=== PATIENT | female | born 1975 | race Caucasian/White ===

== ENCOUNTER 2023-01-01 17:37 | Emergency (ER) | payer BC, OTHER ==
[2023-01-01] MEDS ORDERED: ACETAMINOPHEN 500 MG TABLET (FP) PO ONE (17:58)
[2023-01-01] MEDS ORDERED: METHOCARBAMOL 500 MG TABLET PO ONE (17:58)
[2023-01-01] MEDS ORDERED: KETOROLAC TROMETHAMINE 30 MG/1 ML VIAL IM ONE (17:59)
[2023-01-01] MEDS ORDERED: LIDOCAINE 5% TOPICAL PATCH TP ONE (17:59)
[2023-01-01] MEDS ORDERED: ACETAMINOPHEN 500 MG TABLET (FP) ONE (18:00)
[2023-01-01] MEDS ORDERED: LIDOCAINE 5% TOPICAL PATCH ONE (18:01)
[2023-01-01] MEDS ORDERED: KETOROLAC TROMETHAMINE 30 MG/1 ML VIAL ONE (18:01)
[2023-01-01] MEDS ORDERED: METHOCARBAMOL 500 MG TABLET ONE (18:01)
[2023-01-01 18:02] VITALS: BP 144/97; PULSE 107; RESP 18; TEMP 99; BMI 43.0
[2023-01-01] MEDS ORDERED: LIDOCAINE PATCH REMOVAL MC SCH (22:00)
== END 2023-01-01 19:01 | disposition home or self-care (01) ==
LOC: FER 17:37
PROC: 3E0233Z Introduction of Anti-inflammatory into Muscle, Percutaneous Approach (ICD-10-PCS; principal; 2023-01-01)
DX: M54.40 Lumbago with sciatica, unspecified side (principal); G89.29 Other chronic pain
CPT/HCPCS: 99284-25